=== PATIENT | female | born 2000 | race Caucasian/White ===

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

== ENCOUNTER 2019-06-17 07:31 | Emergency (ER) | payer SELFPAY ==
[~2019-06-17] VITALS: Ht 160 cm; Wt 77.3 kg
[~2019-06-17 07:31] MED LIST: ACET500T15 PO; DOXY100C37 PO; IBUP-1022 PO; NAPR-837 PO; REGL10TA6 PO
[2019-06-17] MEDS ORDERED: ACET-683 PO (09:25)
[2019-06-17 09:38] VITALS: BP 129/63
--- NOTE | 2019-06-17 09:55 | REP ---
RIGHT HAND, FOUR VIEWS: There is no evidence of an acute fracture, dislocation or intrinsic bone disease. IMPRESSION: No fracture or dislocation. Electronically Signed by Sam Mohan MD 06/18/2019 09:16 P
== END 2019-06-17 09:39 | disposition home or self-care (01) ==
LOC: M ED 09:31
DX: S62.514A Nondisplaced fracture of proximal phalanx of right thumb, initial encounter for closed fracture (principal); W10.9XXA Fall (on) (from) unspecified stairs and steps, initial encounter; Y92.099 Unspecified place in other non-institutional residence as the place of occurrence of the external cause; Y93.01 Activity, walking, marching and hiking; Y99.9 Unspecified external cause status; R51 Headache; Z72.0 Tobacco use

== ENCOUNTER 2019-07-17 07:33 | Emergency (ER) | payer SELFPAY ==
[~2019-07-17] VITALS: Ht 160 cm; Wt 76.5 kg
[~2019-07-17 07:33] MED LIST changes: +ACET-683 PO
[2019-07-17] MEDS ORDERED: IBUP-1022 PO (07:39)
[2019-07-17] MEDS ORDERED: NS 1,000 ML IV SCH (09:23)
[2019-07-17] MEDS ORDERED: ONDANSETRON 4MG/2ML VIAL (J2405) IV ONE (09:30)
[2019-07-17 09:39] LABS: URINE PREG TEST NEGATIVE (NEGATIVE)
[2019-07-17 10:02] LABS: BASO % 0.3 % (0.0-1.0); EOS % 0.3 % (0.0-3.0); HEMATOCRIT 40.8 % (36.0-47.0); HEMOGLOBIN 13.3 g/dl (12.0-15.5); LYMPH # 2.8 10^3/uL (1.5-6.5); LYMPH % 21.2 % (24.0-44.0); MEAN CORPUSCULAR HEMOGLOBIN 29.3 pg (27.0-33.0); MEAN CORPUSCULAR HGB CONC 32.6 g/dl (32.0-36.5); MEAN CORPUSCULAR VOLUME 89.9 fl (80.0-96.0); MONO # 0.8 10^3/uL (0.0-0.8); MONO % 5.8 % (0.0-5.0); NEUTROPHILS # 9.4 10^3/uL (1.8-7.7); NEUTROPHILS % 72.1 % (36.0-66.0); PLATELET COUNT, AUTOMATED 305 10^3/uL (150-450); RED BLOOD COUNT 4.54 10^6/uL (4.00-5.40)
[2019-07-17] MEDS: GASTROGRAFIN SOLUTION 30ML PO SCH ×2 (10:20→11:01)
[2019-07-17 10:41] LABS: ALBUMIN 4.6 GM/DL (3.2-5.2); ALT/SGPT 20 U/L (12-78); BILIRUBIN,DIRECT 0.1 MG/DL (0.0-0.2); BILIRUBIN,TOTAL 0.2 MG/DL (0.2-1.0); BLOOD UREA NITROGEN 8 MG/DL (7-18); CARBON DIOXIDE LEVEL 30 MEQ/L (21-32); CHLORIDE LEVEL 106 MEQ/L (98-107); CREATININE FOR GFR 0.93 MG/DL (0.55-1.30); GLUCOSE, FASTING 91 MG/DL (70-100); LIPASE 48 U/L (73-393); POTASSIUM SERUM 4.2 MEQ/L (3.5-5.1); SODIUM LEVEL 141 MEQ/L (136-145)
[2019-07-17] MEDS ORDERED: ISOVUE-370 76% 100ML VIAL (Q9967) As Ordered ONE (11:25)
--- NOTE | 2019-07-17 12:29 | REP ---
CT of the abdomen and pelvis with IV and bowel contrast: There are no comparisons. The visualized lung alberto are unremarkable. The hepatic parenchyma is homogeneous. The gallbladder is unremarkable. The pancreas is unremarkable. The spleen is unremarkable. The adrenals are unremarkable. The kidneys are unremarkable. The abdominal aorta is unremarkable. There is no retroperitoneal adenopathy or mass. There is no mesenteric adenopathy or ascites. The mesentery is unremarkable. There is no bowel distension or obstruction. There is no small bowel wall thickening. There is no large bowel wall thickening. Pelvis: The appendix is unremarkable. The terminal ileum is unremarkable. The pelvic bowel loops are unremarkable. The uterus and adnexa are unremarkable. There are small follicles in each ovary. There is no ascites or adenopathy. The bladder is unremarkable. Impression: Essentially negative CT study of the abdomen and pelvis. Electronically Signed by Sam Lowe MD 07/17/2019 12:21 P
[2019-07-17 13:26] VITALS: BP 140/65
[2019-07-17] MEDS ORDERED: NITROFURANTOIN (MACROBID) 100 MG CAP PO ONE (13:30)
[2019-07-17] MEDS ORDERED: MACR100C43 PO (13:42)
== END 2019-07-17 13:59 | disposition home or self-care (01) ==
LOC: M ED 07:33
DX: N39.0 Urinary tract infection, site not specified (principal); R19.7 Diarrhea, unspecified; F17.200 Nicotine dependence, unspecified, uncomplicated
CPT/HCPCS: 74177; 80048; 80076; 81001; 83690; 84703; 85025; 87088; 87186; 87507; 96374; 99284; J2405; Q9963; Q9967

== ENCOUNTER 2021-02-07 16:26 | Inpatient (IN) | payer MEDICAID, OTHER, SELFPAY ==
[~2021-02-07] VITALS: Ht 162.6 cm; Wt 77.4 kg
[~2021-02-07 16:26] MED LIST changes: +MACR100C43 PO
[2021-02-07] MEDS ORDERED: diphenhydrAMINE 50MG/ML VIAL (J1200) IV STA (17:11)
[2021-02-07] MEDS ORDERED: METOCLOPRAMIDE INJ 10MG/2ML VIAL (J2765 PER 1) IV ONE (17:15)
[2021-02-07] MEDS ORDERED: KETOROLAC 30 MG/ML 1ML VIAL IV ONE (17:15)
[2021-02-07 17:48] LABS: HEMATOCRIT 41.6 % (36.0-47.0); MEAN CORPUSCULAR HEMOGLOBIN 30.8 pg (27.0-33.0); MEAN CORPUSCULAR HGB CONC 33.7 g/dl (32.0-36.5); MEAN CORPUSCULAR VOLUME 91.4 fl (80.0-96.0); PLATELET COUNT, AUTOMATED 297 10^3/uL (150-450); RED BLOOD COUNT 4.55 10^6/uL (4.00-5.40); WHITE BLOOD COUNT 19.9 10^3/uL (4.0-10.0)
[2021-02-07 18:03] LABS: BLOOD UREA NITROGEN 16 MG/DL (7-18); CALCIUM LEVEL 9.6 MG/DL (8.5-10.1); CARBON DIOXIDE LEVEL 27 MEQ/L (21-32); CHLORIDE LEVEL 101 MEQ/L (98-107); GLOMERULAR FILTRATION RATE > 60.0 (>60); GLUCOSE, FASTING 119 MG/DL (70-100); POTASSIUM SERUM 3.4 MEQ/L (3.5-5.1); SODIUM LEVEL 136 MEQ/L (136-145)
[2021-02-07 18:07] LABS: HCG, SERUM QUALITATIVE NEGATIVE (NEGATIVE)
[2021-02-07] MEDS ORDERED: FUROSEMIDE 40MG/4ML VIAL (J1940) IV ONE (18:15)
[2021-02-07] MEDS ORDERED: LORazepam 2 MG/ML VIAL IV STA (18:48)
[2021-02-07] MEDS ORDERED: MAG SULF 1GM/100ML (MAG RUN) 1 GM in IV 1 EA IV ONE (18:50)
[2021-02-07] MEDS ORDERED: NS 1,000 ML IV ONE (18:50)
[2021-02-07] MEDS ORDERED: PROMETHAZINE INJ 25 MG/ML VIAL (J2550) IV ONE (18:50)
--- NOTE | 2021-02-07 19:20 | REPVR ---
PROCEDURE INFORMATION: Exam: CT Head Without Contrast Exam date and time: 02/07/2021 5:17 PM Age: 20 years old Clinical indication: Pain; Headache TECHNIQUE: Imaging protocol: Computed tomography of the head without contrast. Radiation optimization: All CT scans at this facility use at least one of these dose optimization techniques: automated exposure control; mA and/or kV adjustment per patient size (includes targeted exams where dose is matched to clinical indication); or iterative reconstruction. COMPARISON: No relevant prior studies available. FINDINGS: Brain: There is no evidence for an acute large vessel territorial infarct, intracranial hemorrhage, mass, mass effect, or herniation. The cortical gyration pattern, basal ganglia, thalami, brainstem, and cerebellum are normal in appearance. Cerebral ventricles: No ventriculomegaly. Bones/joints: Unremarkable. No acute fracture. Paranasal sinuses: Visualized sinuses are unremarkable. No fluid levels. Mastoid air cells: Visualized mastoid air cells are well-aerated. Soft tissues: Unremarkable. IMPRESSION: No acute intracranial abnormality. Electronically signed by: Oren Alicia On 02/07/2021 19:21:35 PM
[2021-02-07] MEDS ORDERED: HALOPERIDOL 5MG/ML VIAL (J1630 PER 1) IV ONE (20:20)
[2021-02-07] MEDS: DOCUSATE SODIUM 100MG CAPSULE PO SCH (21:00)
[2021-02-07] MEDS ORDERED: NIFEdipine 10 MG CAP PO ONE (21:45)
[2021-02-07 21:50] VITALS: BP 160/100
[2021-02-07] MEDS ORDERED: REGL10TA6 PO (21:51)
[2021-02-07] MEDS ORDERED: diazePAM 10MG/2ML SYRINGE (J3360 PER 5MG) IV ONE (22:15)
[2021-02-07 23:14] LABS: ETHYL ALCOHOL (ETHANOL) < 0.003 % (0.000-0.010)
[2021-02-07] MEDS ORDERED: MOM 30ML SUSPENSION UDC PO PRN (23:45)
[2021-02-07] MEDS ORDERED: ACETAMINOPHEN TAB 650MG DOSE (2X325MG) PO PRN (23:45)
[2021-02-07] MEDS ORDERED: MAALOX 30 ML SUSP *UDC PO PRN (23:45)
[2021-02-07 23:58] LABS: RSV AMPLIFICATION NEGATIVE (NEGATIVE)
--- NOTE | 2021-02-08 00:13 | REPVR ---
PROCEDURE INFORMATION: Exam: XR Chest Exam date and time: 02/07/2021 12:04 AM Age: 20 years old Clinical indication: Leukocytosis TECHNIQUE: Imaging protocol: XR of the chest Views: 1 view. COMPARISON: CR CHEST 2 VIEW 08/28/2014 7:08 PM FINDINGS: Lungs: Unremarkable. No consolidation. No pulmonary edema. Pleural spaces: Unremarkable. No pleural effusion. No pneumothorax. Heart/Mediastinum: Unremarkable. No cardiomegaly. Bones/joints: Unremarkable. IMPRESSION: No acute findings. Electronically signed by: Oren Alicia On 02/08/2021 00:13:06 AM
[2021-02-08 00:46] LABS: CPK CREATINE PHOSPHOKINASE 127 U/L (26-192)
[2021-02-08] MEDS ORDERED: POTASSIUM CHLORIDE 10 MEQ SR TABLET PO ONE (00:55)
--- NOTE | 2021-02-08 01:14 | HPEPDOC ---
[facility] Medical History & Physical Date of Admission Feb 08, 2021 Date of Service: Feb 08, 2021 History and Physical CHIEF COMPLAINT: Headache HISTORY OF PRESENT ILLNESS: 20-year-old female known history of migraine headaches who presents to the hospital with 10 out of 10 headache without aura associated with nausea and vomiting which she says frequently happens for her. Patient was treated in the emergency department for headache, nausea and vomiting and her symptoms did subside down to 6 out of 10 and her nausea and vomiting resolved. At the time patient was getting ready to be discharged home she had a witnessed seizure tonic-clonic which lasted about 2 minutes and was given IV Ativan. At the time that I saw the patient she did not appear to be postictal and she was able to answer my questions appropriately. Tells me she no longer feels nauseous and her headache is better. Tells me she's never had a seizure before. Arti MUSA discussed the case with neurologist director of infection control Dr. hartman, who suspects the seizu res likely secondary to all the medications she received for her headache and does not recommend an MRI brain at this time. He did recommended the patient be admitted for observation. PAST MEDICAL/SURGICAL HISTORY: Migraine headaches SOCIAL HISTORY: Endorses drinking alkyl socially a few times per week Denies tobacco use Denies illicit drug use with the exception of cannabis use FAMILY HISTORY: Reviewed and none contributory to this admission ALLERGIES: Please see below. REVIEW OF SYSTEMS: 10 point review of systems complete all negative otherwise stated in HPI HOME MEDICATIONS: Please see below. PHYSICAL EXAMINATION: Constitutional: Awake but keeps falling asleep. Answering my questions appropriately ENT: Sclera are clear Respiratory: Lungs CTA bilaterally. No respiratory distress. No use of accessory muscles. Cardiovascular: RRR S1 and S2 are normal, no murmur Gastrointestinal: Abdomen is soft, non distended, non tender, BS present. Musculoskeletal: No lower extremity edema. Neurologic: No focal neurological deficit. Negative Kernig and Brudzinski signs Mental Status: A&O x3, normal affect Skin: Warm, dry LABORATORY DATA: See below. IMAGING: See chart MICROBIOLOGY: Please see below. ASSESSMENT Migraine headaches without aura associated with nausea and vomiting. Witnessed seizure Leukocytosis Hypokalemia PLAN Patient's headache has improved to 6/10. Her nausea and vomiting also resolved at this time. We will give her Excedrin as needed and 1x 6 mg subQ sumatriptan. Neurologist believes that the witnessed seizure is likely related to all the headache medications the patient received and doesn't think an MRI is necessary at this time. Recommended patient be admitted to be observed. This is the patient's first seizure and should this recur further workup may be necessary. Patient's leukocytosis suspected to be reactive at this time. Follow up on chest x-ray urinalysis and blood culture. Follow-up pro calcitonin. No antibiotics for now. Hypokalemia likely secondary to vomiting. Replace potassium and repeat BMP in the morning. DVT prophylaxis with Lovenox A [facility] Hospitalist Vital Signs Vital Signs Date Time Temp Pulse Resp B/P (MAP) Pulse Ox O2 Delivery O2 Flow Rate FiO2 02/08/21 00:00 91 20 139/76 (97) 99 Room Air 02/07/21 16:38 96.2 Laboratory Data Labs 24H Laboratory Tests 2 02/07/21 17:32: Nucleated Red Blood Cells % (auto) 0.0, Anion Gap 8, Glomerular Filtration Rate > 60.0, Calcium Level 9.6, Human Chorionic Gonadotropin, Qual NEGATIVE 02/07/21 22:33: 02/07/21 22:34: Total Creatine Kinase 127, Ethyl Alcohol Level < 0.003 02/07/21 22:47: Coronavirus (COVID-19)(PCR) NEGATIVE, Influenza Type A (RT-PCR) NEGATIVE, Influenza Type B (RT-PCR) NEGATIVE, Respiratory Syncytial Virus (PCR) NEGATIVE CBC/BMP Laboratory Tests 02/07/21 17:32 Microbiology Microbiology 02/08/21 Blood Culture, Received Pending Home Medications Unable to Obtain Active Prescriptions or Reported Meds Allergies Coded Allergies: No Known Allergies (Unverified , 03/07/18) A-FIB/CHADSVASC A-FIB History Current/History of A-Fib/PAF?: No REN VAZQUEZ MD Feb 08, 2021 00:59
[2021-02-08 02:00] VITALS: BP 135/94
[2021-02-08] MEDS ORDERED: EXCEDRIN MIGRAINE TABLET PO PRN (02:00)
[2021-02-08] MEDS ORDERED: METOCLOPRAMIDE INJ 10MG/2ML VIAL (J2765 PER 1) IV PRN (02:00)
[2021-02-08] MEDS ORDERED: SUMAtriptan SUCCINATE 6 MG/0.5 ML VIAL SC ONE (02:00)
[2021-02-08 06:00] VITALS: BP 147/81
[2021-02-08 06:44] LABS: HEMATOCRIT 37.5 % (36.0-47.0); HEMOGLOBIN 12.6 g/dl (12.0-15.5); MEAN CORPUSCULAR HEMOGLOBIN 30.5 pg (27.0-33.0); MEAN CORPUSCULAR HGB CONC 33.6 g/dl (32.0-36.5); MEAN CORPUSCULAR VOLUME 90.8 fl (80.0-96.0); PLATELET COUNT, AUTOMATED 270 10^3/uL (150-450); RED BLOOD COUNT 4.13 10^6/uL (4.00-5.40); WHITE BLOOD COUNT 19.7 10^3/uL (4.0-10.0)
[2021-02-08 07:04] LABS: ALBUMIN 3.8 GM/DL (3.2-5.2); ALT/SGPT 22 U/L (12-78); BILIRUBIN,TOTAL 0.9 MG/DL (0.2-1.0); BLOOD UREA NITROGEN 11 MG/DL (7-18); CALCIUM LEVEL 8.4 MG/DL (8.5-10.1); CARBON DIOXIDE LEVEL 26 MEQ/L (21-32); CHLORIDE LEVEL 108 MEQ/L (98-107); CREATININE FOR GFR 0.84 MG/DL (0.55-1.30); GLOMERULAR FILTRATION RATE > 60.0 (>60); GLUCOSE, FASTING 94 MG/DL (70-100); MAGNESIUM LEVEL 2.4 MG/DL (1.8-2.4); SODIUM LEVEL 138 MEQ/L (136-145); TOTAL PROTEIN 6.5 GM/DL (6.4-8.2)
[2021-02-08] MEDS: DOCUSATE SODIUM 100MG CAPSULE PO SCH (08:18)
[2021-02-08] MEDS ORDERED: ENOXAPARIN 40MG/0.4ML SYRINGE (J1650 PER 10MG) SC SCH (09:00)
[2021-02-08 09:03] LABS: APPEARANCE, URINE HAZY (CLEAR); BACTERIA, URINE AUTO NEGATIVE (NEGATIVE); BILIRUBIN, URINE AUTO NEGATIVE (NEGATIVE); BLOOD, URINE BLOOD NEGATIVE (NEGATIVE); COLOR, URINE YELLOW (YELLOW); GLUCOSE, URINE (UA) AUTO NEGATIVE (NEGATIVE); KETONE, URINE AUTO 1+ mg/dL (NEGATIVE); LEUKOCYTE ESTERASE, URINE AUTO NEGATIVE (NEGATIVE); MUCUS, URINE SMALL (NEGATIVE); NITRITE, URINE AUTO NEGATIVE (NEGATIVE); PROTEIN, URINE AUTO 1+ mg/dL (NEGATIVE); RBC, URINE AUTO 2 /HPF (0-3); SPECIFIC GRAVITY URINE AUTO 1.019 (1.002-1.035); SQUAMOUS EPITHELIAL CELL UR AU 5 /HPF (0-6); UROBILINOGEN, URINE AUTO 0.2 mg/dL (0.0-2.0); WBC, URINE AUTO 1 /HPF (0-3)
[2021-02-08 09:26] LABS: AMPHETAMINES LEVEL URINE NEGATIVE (NEGATIVE); BARBITURATES URINE NEGATIVE (NEGATIVE); BENZODIAZEPINES URINE NEGATIVE (NEGATIVE); CANNABINOIDS URINE POSITIVE (NEGATIVE); COCAINE METABOLITE URINE NEGATIVE (NEGATIVE); METHADONE URINE NEGATIVE (NEGATIVE); OPIATES URINE NEGATIVE (NEGATIVE); PHENCYCLIDINE URINE NEGATIVE (NEGATIVE)
[2021-02-08] MEDS ORDERED: TOPA1TAB PO (10:11)
[2021-02-08] MEDS ORDERED: FIOR1CAP PO (10:11)
--- NOTE | 2021-02-08 11:09 | DS.PDOC ---
Discharge Summary General Date of Admission Feb 07, 2021 at 23:44 Date of Discharge 02/08/21 Discharge Summary PROCEDURES PERFORMED DURING STAY: [None]. DISCHARGE DIAGNOSES: Acute Migraine headaches Witnessed seizure thought to be due to multiple medications given for migraine Reactive Leukocytosis Hypokalemia Cannabis use. COMPLICATIONS/CHIEF COMPLAINT: Seizure. HOSPITAL COURSE: 20-year-old female known history of migraine headaches who presented to the hospital with 10 out of 10 headache without aura associated with nausea and vomiting which she says frequently happens for her. Patient was treated in the emergency department for headache, nausea and vomiting and her symptoms did subside down to 6 out of 10 and her nausea and vomiting resolved. At the time patient was getting ready to be discharged home she had a witnessed seizure tonic-clonic which lasted about 2 minutes and was given IV Ativan. ED provider Arti MUSA discussed the case with neurologist front line leader Dr. Plaza, who suspects the seizure was likely secondary to all the medications she received for her headache and did not recommend an MRI brain at this time. He did recommended the patient be admitted for observation. This was her first episode of Seizure and Neurology did not recommend starting any anti seizure medications. She did not have any further seizures overnight. He headache has mostly resolved now. She was started on topamax for migraine prophylaxis and was given a script for Fioricet for acute migraine attacks. Her labs were significant for leucocytosis . Her procalcitonin was not elevated. Her Utox was positive for Cannabis. PHYSICAL EXAMINATION ON DISCHARGE: VITAL SIGNS: Please see below. GENERAL: Awake alert oriented x 3 ENT: Sclera are clear Respiratory: clear to Auscultation , Normal air entry. Cardiovascular: RRR S1 and S2 are normal, no murmur Gastrointestinal: Abdomen is soft, non distended, non tender, BS present. Musculoskeletal: No lower extremity edema. Neurologic: No focal neurological deficit. Negative Kernig and Brudzinski signs Mental Status: A&O x3, normal affect Skin: Warm, dry LABORATORY DATA: Please see below. IMAGING: CT head: Brain: There is no evidence for an acute large vessel territorial infarct, intracranial hemorrhage, mass, mass effect, or herniation. The cortical gyration pattern, basal ganglia, thalami, brainstem, and cerebellum are normal in appearance. Cerebral ventricles: No ventriculomegaly. Bones/joints: Unremarkable. No acute fracture. Paranasal sinuses: Visualized sinuses are unremarkable. No fluid levels. Mastoid air cells: Visualized mastoid air cells are well-aerated. Soft tissues: Unremarkable. IMPRESSION: No acute intracranial abnormality ACTIVITY: [As tolerated]. DIET: Regular DISCHARGE PLAN: Home DISPOSITION: . DISCHARGE INSTRUCTIONS: Pmd in 1 month DISCHARGE CONDITION: [Stable]. TIME SPENT ON DISCHARGE: 35 minutes. Vital Signs/I&Os Vital Signs Date Time Temp Pulse Resp B/P (MAP) Pulse Ox O2 Delivery O2 Flow Rate FiO2 02/08/21 06:00 98.1 71 16 147/81 (103) 100 Room Air I&O- Last 24 Hours up to 6 AM 02/08/21 06:00 Intake Total 360 ml Output Total 0 ml Balance 360 ml Laboratory Data Labs 24H Laboratory Tests 2 02/07/21 17:32: Nucleated Red Blood Cells % (auto) 0.0, Anion Gap 8, Glomerular Filtration Rate > 60.0, Calcium Level 9.6, Human Chorionic Gonadotropin, Qual NEGATIVE 02/07/21 22:33: Procalcitonin <0.05 02/07/21 22:34: Total Creatine Kinase 127, Ethyl Alcohol Level < 0.003 02/07/21 22:47: Coronavirus (COVID-19)(PCR) NEGATIVE, Influenza Type A (RT-PCR) NEGATIVE, Influenza Type B (RT-PCR) NEGATIVE, Respiratory Syncytial Virus (PCR) NEGATIVE 02/08/21 06:23: Nucleated Red Blood Cells % (auto) 0.0, Anion Gap 4L, Glomerular Filtration Rate > 60.0, Calcium Level 8.4L, Magnesium Level 2.4, Total Bilirubin 0.9, Aspartate Amino Transf (AST/SGOT) 11, Alanine Aminotransferase (ALT/SGPT) 22, Alkaline Phosphatase 63, Total Protein 6.5, Albumin 3.8, Albumin/Globulin Ratio 1.4 02/08/21 08:50: Urine Color YELLOW, Urine Appearance HAZY, Urine pH 6.0, Urine Specific [place] 1.019, Urine Protein 1+H, Urine Glucose (Auto)(UA) NEGATIVE, Urine Ketones (Auto) 1+H, Urine Blood NEGATIVE, Urine Nitrite NEGATIVE, Urine Bilirubin NEGATIVE, Urine Urobilinogen 0.2, Urine Leukocyte Esterase (Auto) NEGATIVE, Urine WBC (Auto) 1, Urine RBC (Auto) 2, Urine Hyaline Casts (Auto) 0, Urine Bacteria (Auto) NEGATIVE, Urine Squamous Epithelial Cells 5, Urine Mucus (Auto) SMALL, Urine Sperm (Auto) , Urine Opiates Screen NEGATIVE, Urine Methadone Screen NEGATIVE, Urine Barbiturates Screen NEGATIVE, Urine Phencyclidine Screen NEGATIVE, Urine Amphetamines Screen NEGATIVE, Urine Benzodiazepines Screen NEGATIVE, Urine Cocaine Metabolite Screen NEGATIVE, Urine Cannabinoids Screen POSITIVEH CBC/BMP Laboratory Tests 02/07/21 17:32 02/08/21 06:23 Microbiology Microbiology 02/08/21 Blood Culture, Received Pending 02/08/21 Blood Culture, Received Pending Discharge Medications Scheduled Topiramate (Topamax) 25 Mg Tablet, 25 MG PO ASDIRECTED 1 tab at bedtime for 7 days then 2 tabs at bedtime to continue. Scheduled PRN Butalb/Acetaminophen/Caffeine (Fioricet 50-300-40 mg Capsule) 1 Each Capsule, 1- 2 CAP PO Q4HP PRN for HEADACHE Allergies Coded Allergies: No Known Allergies (Unverified , 03/07/18) BONIFACIO ROMEO MD Feb 08, 2021 11:09
--- NOTE | 2021-02-10 22:09 | ECGEPIP ---
[facility] - ED Test Date: 2021-02-07 Pat Name: VINCENT MAIN Department: Room: [place] [address] Gender: Female Research Editor: zander : 2000 Requested By: MARITA MEDRANO Order Number: [id number] Reading MD: Sonu Raza Measurements Intervals Glynn Rate: 58 P: 24 VA: 130 QRS: 81 QRSD: 82 T: 67 QT: 444 QTc: 435 Interpretive Statements Sinus bradycardia Comparison tracing not on file Electronically Signed on 02-10-2021 22:09:21 EDT by Sonu aRza
== END 2021-02-08 11:40 | disposition home or self-care (01) | DRG 54 ==
LOC: M ED 16:26 → M ED INP 23:44 → ENRESERV 02-08 00:43 → M MS5PR 02-08 02:00
PROVIDERS: ADMIT Family Medicine; ATTEND Internal Medicine Nephrology
DX: G43.909 Migraine, unspecified, not intractable, without status migrainosus (principal); G40.409 Other generalized epilepsy and epileptic syndromes, not intractable, without status epilepticus; E87.6 Hypokalemia; F12.90 Cannabis use, unspecified, uncomplicated; D72.829 Elevated white blood cell count, unspecified

== ENCOUNTER 2021-02-11 10:01 | Observation (INO) | payer OTHER ==
[~2021-02-11] VITALS: Ht 157.5 cm; Wt 73.6 kg
[~2021-02-11 10:01] MED LIST changes: +FIOR1CAP PO; +TOPA1TAB PO
[2021-02-11] MEDS ORDERED: MAGN400T2 PO ×2 (10:12→12:00)
[2021-02-11 10:33] LABS: BASO # 0.1 10^3/uL (0.0-0.2); BASO % 0.2 % (0.0-1.0); HEMATOCRIT 41.5 % (36.0-47.0); HEMOGLOBIN 14.2 g/dl (12.0-15.5); LYMPH # 1.5 10^3/uL (1.5-5.0); LYMPH % 5.7 % (24.0-44.0); MEAN CORPUSCULAR HGB CONC 34.2 g/dl (32.0-36.5); MEAN CORPUSCULAR VOLUME 90.6 fl (80.0-96.0); MONO # 0.9 10^3/uL (0.0-0.8); MONO % 3.7 % (2.0-8.0); NEUTROPHILS # 23.1 10^3/uL (1.5-8.5); NEUTROPHILS % 89.6 % (36.0-66.0); PLATELET COUNT, AUTOMATED 319 10^3/uL (150-450); RED BLOOD COUNT 4.58 10^6/uL (4.00-5.40); WHITE BLOOD COUNT 25.7 10^3/uL (4.0-10.0)
[2021-02-11 10:53] LABS: ERYTHROCYTE SEDIMENTATION RATE 3 mm/hr (0-20)
[2021-02-11] MEDS ORDERED: NS 1,000 ML IV ONE (10:55)
[2021-02-11] MEDS ORDERED: ACETAMINOPHEN 500 MG TAB PO ONE ×2 (10:55→13:50)
[2021-02-11] MEDS ORDERED: METOCLOPRAMIDE INJ 10MG/2ML VIAL (J2765 PER 1) IV ONE ×3 (10:55→16:00)
[2021-02-11] MEDS ORDERED: diphenhydrAMINE 50MG/ML VIAL (J1200) IV ONE (10:55)
[2021-02-11] MEDS ORDERED: KETOROLAC 30 MG/ML 1ML VIAL IV ONE ×2 (10:55→17:00)
[2021-02-11 11:06] LABS: ALBUMIN 4.8 GM/DL (3.2-5.2); ALT/SGPT 23 U/L (12-78); BILIRUBIN,DIRECT < 0.1 MG/DL (0.0-0.2); BILIRUBIN,TOTAL 0.3 MG/DL (0.2-1.0); C REACTIVE PROTEIN QUANTITATIV < 0.30 MG/DL (0.00-0.30); TOTAL PROTEIN 7.9 GM/DL (6.4-8.2)
[2021-02-11] MEDS ORDERED: TOPIRAMATE (TopAMAX) 25 MG TAB PO ONE (11:10)
--- NOTE | 2021-02-11 11:34 | REP ---
INDICATION: photophobia, int severe pain fronta sin Wednesday, leukocytosis. COMPARISON: Three 11/17/2021 and 09/21/2008. TECHNIQUE: CT of the brain without IV contrast. FINDINGS: There is no acute hemorrhage. There is no edema, mass effect or midline shift. The ventricles are normal size. The cortical stripe is maintained. The visualized paranasal sinuses and mastoid air cells are clear. The sphenoid sinus cyst identified on 09 0909/21/2008 has resolved. IMPRESSION: No acute hemorrhage, edema, mass effect or midline shift. Otherwise, negative CT study of the brain. Given the persistence of the symptomatology MRI might be considered for follow-up. <Electronically signed by Sam Lowe > 02/11/21 1170
[2021-02-11 11:40] LABS: MONO REFLEX EBV COMP NEGATIVE (NEGATIVE)
[2021-02-11] MEDS ORDERED: VALPROATE SOD INJ 1,000 MG in D5W 50 ML IV ONE (12:00)
[2021-02-11] MEDS ORDERED: TOPI25TA10 PO (12:00)
[2021-02-11] MEDS ORDERED: BUTA1CAP PO (12:00)
[2021-02-11 13:02] LABS: RSV AMPLIFICATION NEGATIVE (NEGATIVE)
[2021-02-11 14:06] LABS: AMPHETAMINES LEVEL URINE NEGATIVE (NEGATIVE); BARBITURATES URINE POSITIVE (NEGATIVE); BENZODIAZEPINES URINE NEGATIVE (NEGATIVE); CANNABINOIDS URINE POSITIVE (NEGATIVE); COCAINE METABOLITE URINE NEGATIVE (NEGATIVE); METHADONE URINE NEGATIVE (NEGATIVE); OPIATES URINE NEGATIVE (NEGATIVE); PHENCYCLIDINE URINE NEGATIVE (NEGATIVE)
[2021-02-11 14:06] LABS: APPEARANCE, CSF CLEAR (CLEAR); COLOR, CSF COLORLESS (COLORLESS); CSF TUBE# CELL CNT TUBE 1
[2021-02-11 14:14] LABS: CSF TUBE# GLU TUBE 3; CSF TUBE# TP TUBE 3; GLUCOSE CSF 75 MG/DL (40-75); TOTAL PROTEIN,CSF 60 MG/DL (15-45)
[2021-02-11] MEDS: MAG SULF 1GM/100ML (MAG RUN) 1 GM in IV 1 EA IV SCH ×2 (14:57→18:46)
[2021-02-11 15:25] VITALS: BP 139/79
[2021-02-11 15:30] VITALS: BP 190/90
--- NOTE | 2021-02-11 15:38 | HPEPDOC ---
General Date of Admission Feb 11, 2021 Date of Service: Feb 11, 2021 Attending Physician: FÉLIX FRENCH MD Chief Complaint The patient is a 20-year-old female admitted with a reason for visit of John valdovinos. Source: Patient Exam Limitations: No limitations Associated Symptoms: Headaches, Nausea, Vomiting History of Present Illness Subjective: Patient is a 20 year old female with PHM of migraine headaches and undiagnosed hypertension who presented to the ED due to worsening frontal headache onset (02/06/21). Her headache was initially intermittent but became constant at 5:30 am today. Pt describes the headache as "pounding and squeezing" frontal headache that does not radiate. Nothing makes her headache better or worse. She reports being dx with migraines at the age of 6 initially. Admits to lightheadedness, dizziness, blurry vision, nausea, vomiting x4 today, photophobia, SOB, neck pain, neck stiffness, diarrhea and constipation. She states that she does not "feel balanced" when she is walking. Denies fever, chills, rashes, lesions, abd pain, back pain. Denies any recent sick contacts or travel. She first presented to the ED on 02/07/21, due to headache and was given Benadryl, Toradol, and Reglan that minimally helped with her sx. As she was being discharged from the ED pt had a witnessed seizure that lasted about 2 minutes and was given IV Ativan. She reports that she does not remember the seizure and feeling confused after. She was admitted for observation at that time and was discharged with Topamax 25 mg. Past medical history: Migraine headaches since age 6. HTN (not formally diagnosed per pt). Social history: Admits to occasional EtOH use. Admits to marijuana use (smoked "for a couple years, here and there"; last smoked 1 wk ago). Admits past tobacco use. She states that she is sexually active with one partner, only occasionally using protection. Family History: Father has hx of liver CA and HTN. Mother has hx of HTN. Objective: VITALS: See below. GENERAL: Pt is laying down in bed in a dark room. Appears to be in slight distress secondary to pain. HEENT: EOMI. PERRLA. Conjunctiva and lids normal. No papilledema. Frontal sinus very tender to palpation. Mild maxillary sinus tenderness. No increase in lacrimation noted. No rhinorrhea. NECK: No nuchal rigidity. Negative Brudzinski's sign. Negative Kernig's sign. HEART: Regular rate and rhythm. Normal S1/S2. No murmurs, rubs, or gallops appreciated. LUNGS: Lungs clear to auscultation. Good air movement. No wheezes, rales, or rhonchi. ABD: Soft and non-tender to palpation. No rebound or guarding. Normal bowel sounds to all four quadrants. EXTREMITIES: No edema noted. NEURO: No focal neurological deficits appreciated. Strength intact. Imaging: Head CT (02/11/21): IMPRESSION - No acute hemorrhage, edema, mass effect or midline shift. Otherwise, negative CT study of the brain. Given the persistence of the symptomatology MRI might be considered for follow-up. Assessment/Plan: Patient is a 20 year old female with PHM of migraine headaches and undiagnosed hypertension who presented to the ED due to worsening frontal headache onset (02/06/21). Her headache was initially intermittent but became constant at 5:30 am today. Pt describes the headache as "pounding and squeezing" frontal headache that does not radiate. Nothing makes her headache better or worse. She reports being dx with migraines at the age of 6 initially. Admits to lightheadedness, dizziness, blurry vision, nausea, vomiting x4 today, photophobia, SOB, neck pain, neck stiffness, diarrhea and constipation. She states that she does not "feel balanced" when she is walking. Denies fever, chills, rashes, lesions, abd pain, back pain. Denies any recent sick contacts or travel. She first presented to the ED on 02/07/21, due to headache and was given Benadryl, Toradol, and Reglan that minimally helped with her sx. As she was being discharged from the ED pt had a witnessed seizure that lasted about 2 minutes and was given IV Ativan. She reports that she does not remember the seizure and feeling confused after. She was admitted for observation at that time and was discharged with Topamax 25 mg. In the ED today, pt had elevated WBC at 25.7 as well as neck pain and stiffness that was reported by pt. Will admit for observation for further workup of headache. #Intractable headache - Differential diagnosis at this time is migraine headache vs viral meningitis vs pseudo tumor cerebri. - CT Head on 02/11/21 showed no acute hemorrhage, edema, mass effect or midline shift. Otherwise, negative CT study of the brain. Given the persistence of the symptomatology MRI might be considered for follow-up. - MRI and MRA brain ordered. - Pt WBC was elevated at 25.7 in ED. - LP completed. Pt instructed to lay flat for 2 hours and elevate head of bed no higher than 30 degrees. Vitals q1h for 2 hrs. Then will resume standard vitals. - CSF analysis showed <2 RBC as well as 60 protein. - CSF culture and blood culture pending. - Viral meningitis work up pending. - Lactic acid WNL. - Pt given 1 g Valproate, topiramate, reglan in ED. - Gave 1 dose of Toradol and morphine. - Neuro consulted. Instructs to give pt Mag sulfate 1 gm now and 1 gm in 6 hr. Instructs to continue with MRI/MRA brain and work up for viral meningitis. #History of possible seizure - Pt has had one episode of a reported seizure last Wednesday. Unsure if this was witnessed or not as documentation is unclear. At time it was believed to be possibly provoked by medication (Phenergan, Toradol, and Benadryl) - Unclear of specific details of the seizure so difficult to say if pt actually had a seizure. - Pt given 1g Valproate in ED to prevent seizure. - Prolactin ordered- pending - Pt has appointment to follow up with neurology. #Leukocytosis - Will continue to trend - UA negative, CXR wnl, afebrile- no abx indicated at this point - Blood cultures pending - Not tachycardic or febrile. No indications for abx currently. Will continue to trend. #Hypertension - Pt BP is 190/90, may be secondary to pain. - Will give 1 dose IV hydralazine. Gave 1 dose of Toradol and morphine for pain control. - Will continue to monitor. DVT Prophylaxis: Lovenox 40 mg SC Daily. Disposition: Currently working up pt for migraine headache vs viral meningitis. Discharge pending clinical improvement. Home Medications Scheduled Magnesium Oxide (Magnesium Oxide) 400 Mg Tablet, 400 MG PO DAILY, (Reported) Topiramate (Topiramate) 25 Mg Tablet, 25 MG PO QHS, (Reported) Scheduled PRN Butalb/Acetaminophen/Caffeine (Wxrcyb-Ezxcmzem-Gsfs 50-300-40) 1 Each Capsule, 1 CAP PO Q4H PRN for HEADACHE, (Reported) Allergies Coded Allergies: No Known Allergies (Unverified , 03/07/18) A-FIB/CHADSVASC A-FIB History Current/History of A-Fib/PAF?: No Vital Signs Vital Signs Date Time Temp Pulse Resp B/P (MAP) Pulse Ox O2 Delivery O2 Flow Rate FiO2 02/11/21 13:35 98.0 82 18 192/92 (125) 100 Room Air Laboratory Data Labs 24H Laboratory Tests 2 02/11/21 10:22: Immature Granulocyte % (Auto) 0.8, Neutrophils (%) (Auto) 89.6H, Lymphocytes (%) (Auto) 5.7L, Monocytes (%) (Auto) 3.7, Eosinophils (%) (Auto) 0.0, Basophils (%) (Auto) 0.2, Neutrophils # (Auto) 23.1H, Lymphocytes # (Auto) 1.5, Monocytes # (Auto) 0.9H, Eosinophils # (Auto) 0.0, Basophils # (Auto) 0.1, Nucleated Red Blo od Cells % (auto) 0.0, Erythrocyte Sedimentation Rate 3, Total Bilirubin 0.3, Direct Bilirubin < 0.1, Aspartate Amino Transf (AST/SGOT) 14, Alanine Aminotransferase (ALT/SGPT) 23, Alkaline Phosphatase 67, C-Reactive Protein, Quantitative < 0.30, Total Protein 7.9, Albumin 4.8, Albumin/Globulin Ratio 1.5, Monoscreen NEGATIVE 02/11/21 10:29: POC Glucose (Misc Panel) 146H, POC Sodium (Misc Panel) 137, POC Potassium (Misc Panel) 3.8, POC Chloride (Misc Panel) 102, POC Total CO2 (Misc Panel) 23.0, POC Blood Urea Nitrogen (Misc Panel 16, POC Ionized Calcium (Misc Panel) 4.6, POC Creatinine (Misc Panel) 0.8, POC Hematocrit (Misc Panel) 44.0 02/11/21 10:31: POC Beta HCG, Quantitative < 5.0 02/11/21 11:06: 02/11/21 12:03: Coronavirus (COVID-19)(PCR) NEGATIVE, Influenza Type A (RT-PCR) NEGATIVE, Influenza Type B (RT-PCR) NEGATIVE, Respiratory Syncytial Virus (PCR) NEGATIVE 02/11/21 12:07: Lactic Acid Level 2.0 02/11/21 12:47: CSF Appearance CLEAR, CSF Color COLORLESS, CSF WBC (Auto) 1, CSF RBC (Auto) < 2H, CSF Glucose (Tube 1) TUBE 3, CSF Total Protein (Tube 1) TUBE 3, CSF Cell Count Tube # TUBE 1, CSF Polynuclear WBCs (%) , CSF Glucose 75, CSF Total Protein 60H 02/11/21 13:05: Urine Color YELLOW, Urine Appearance HAZY, Urine pH 8.0, Urine Specific [place] 1.011, Urine Protein NEGATIVE, Urine Glucose (UA) NEGATIVE, Urine Ketones TRACEH, Urine Blood NEGATIVE, Urine Nitrite NEGATIVE, Urine Bilirubin NEGATIVE, Urine Urobilinogen 0.2, Urine Leukocyte Esterase NEGATIVE, Urine WBC (Auto) 2, Urine RBC (Auto) 1, Urine Hyaline Casts (Auto) 0, Urine Bacteria (Auto) NEGA TIVE, Urine Squamous Epithelial Cells 3, Urine Mucus (Auto) SMALL, Urine Sperm (Auto) , Urine Opiates Screen NEGATIVE, Urine Methadone Screen NEGATIVE, Urine Barbiturates Screen POSITIVEH, Urine Phencyclidine Screen NEGATIVE, Urine Amphetamines Screen NEGATIVE, Urine Benzodiazepines Screen NEGATIVE, Urine Cocaine Metabolite Screen NEGATIVE, Urine Cannabinoids Screen POSITIVEH 02/11/21 13:49: CBC/BMP Laboratory Tests 02/11/21 10:22 Microbiology Microbiology 02/11/21 Fungal Smear, Received Pending 02/11/21 Fungal Culture, Received Pending 02/11/21 Viral Culture, Received Pending 02/11/21 Gram Stain, Received Pending 02/11/21 CSF Culture, Received Pending 02/11/21 , Received Pending 02/11/21 Blood Culture, Received Pending 02/11/21 Blood Culture, Received Pending Plan / VTE VTE Prophylaxis Ordered?: Yes GME ATTESTATION GME ATTESTATION My faculty preceptor for this patient encounter was physically present during the encounter and was fully available. All aspects of the patient interview, examination, medical decision making process, and medical care plan development were reviewed and approved by the faculty preceptor. The faculty preceptor is aware and concurs with the plan as stated in the body of this note and will attest to such by his/her cosignature. ATTENDING NOTE I, Félix French MD, have independently examined this patient and performed my own physical exam, as well as reviewed the documentation and edited where necessary. I have discussed in detail with the resident / student the findings and plan of treatment as documented by the resident / student and edited their note. I agree with their findings and treatment plan and have edited their documentation. Minerva MADRIGAL OMS-3 Feb 11, 2021 15:38 Kwame Driscoll DO Feb 11, 2021 16:00 FÉLIX FRENCH MD Feb 12, 2021 14:48
--- NOTE | 2021-02-11 15:51 | REP ---
INDICATION: photophobia, headache, leukocytosis. TECHNIQUE: The procedure was performed under the direct supervision of Dr. Hoff. The risks and benefits of the procedure were explained to the patient and informed consent was obtained. The L3-4 interspace was localized using fluoroscopic guidance. The skin was prepped and draped in a sterile fashion. 1% lidocaine was used as a local anesthetic. Using fluoroscopic guidance a 22-gauge spinal needle was inserted and advanced into the thecal sac. Opening pressure measured 19 cm of H2O. 12 ml of spinal fluid was withdrawn and sent to lab. The patient tolerated the procedure well and there were no immediate complications. Less than 6 seconds of fluoro time was utilized for this procedure. FINDINGS: Opening pressure measured 19 cm of H2O. IMPRESSION: Fluoro guidance for lumbar puncture. <Electronically signed by Arun Esparza > 02/11/21 [id number] <Electronically signed by Alfonso Hoff > 02/11/21 [id number]
[2021-02-11] MEDS ORDERED: MORPHINE 2 MG/ML 1ML VIAL (J2270) IV ONE (17:00)
[2021-02-11] MEDS ORDERED: hydrALAZINE 20MG/ML 1ML VIAL (J0360 PER 20MG) IV ONE (17:00)
--- NOTE | 2021-02-11 17:08 | ECGEPIP ---
[facility] Test Date: 2021-02-11 Pat Name: VINCENT MAIN Department: Room: [place] [address] Gender: Female Car Dumper: GIULIANO : 2000 Requested By: Kwame Driscoll Order Number: [id number] Reading MD: Sonu Wiggins Measurements Intervals [place] Rate: 68 P: 18 KS: 116 QRS: 71 QRSD: 82 T: 61 QT: 432 QTc: 459 Interpretive Statements Normal sinus rhythm with sinus arrhythmia Increased heart rate compared with 02/07/2021. Electronically Signed on 02-11-2021 17:07:44 EDT by Sonu Wiggins
[2021-02-11] MEDS ORDERED: SLF 3 ML SYR IV PRN (17:20)
[2021-02-11 17:30] VITALS: BP 139/79
[2021-02-11] MEDS: ACETAMINOPHEN TAB 650MG DOSE (2X325MG) PO PRN (19:49)
[2021-02-11] MEDS: SLF 3 ML SYR IV SCH ×2 (19:49→21:49)
[2021-02-11 20:00] VITALS: BP 141/87
[2021-02-11] MEDS: MORPHINE 2 MG/ML 1ML VIAL (J2270) IV PRN (21:00)
[2021-02-11] MEDS ORDERED: PROHANCE 279.3MG/ML 15ML VIAL As Ordered ONE (22:41)
[2021-02-12] VITALS: BP 154/80
--- NOTE | 2021-02-12 00:26 | REPVR ---
PROCEDURE INFORMATION: Exam: MR Head Without and With Contrast Exam date and time: 02/11/2021 10:53 PM Age: 20 years old Clinical indication: Pain; Other: Worst FISHMAN life, intermittent frontal, seizure Wednesday; Headache not specified TECHNIQUE: Imaging protocol: MR of the head without and with intravenous contrast. Contrast material: PROHANCE; Contrast volume: 15 ml; Contrast route: INTRAVENOUS (IV); COMPARISON: CT Head without contrast 02/11/2021 11:13 AM FINDINGS: Ventricles demonstrate normal size and configuration. Major vascular flow voids at the skull base are preserved. No extra-axial fluid collection. No midline shift or intracranial mass effect. No pathologic white-matter signal or cerebral edema. No diffusion restriction. No pathologic intracranial enhancement. Visualized paranasal sinuses are clear. There is effusion at the left petrous apex. IMPRESSION: No acute intracranial abnormality. Electronically signed by: Alireza Garcia On 02/12/2021 00:26:40 AM
--- NOTE | 2021-02-12 00:26 | REPVR ---
PROCEDURE INFORMATION: Exam: MR Angiogram Head Without Contrast, Arteries Exam date and time: 02/11/2021 10:53 PM Age: 20 years old Clinical indication: Pain; Headache; Additional info: Worst FISHMAN life, intermittent frontal, seizure Wednesday TECHNIQUE: Imaging protocol: MR angiogram head without contrast. Exam focused on the arteries. 3D rendering (Not supervised by radiologist): MIP and/or 3D reconstructed images were created by the technologist. COMPARISON: CT Head without contrast 02/11/2021 11:13 AM FINDINGS: ANTERIOR CIRCULATION: Right internal carotid artery: Intracranial segment is patent with no significant stenosis. No aneurysm. Right middle cerebral artery: No occlusion or significant stenosis. No aneurysm. Right anterior cerebral artery: No occlusion or significant stenosis. No aneurysm. Left internal carotid artery: Intracranial segment is patent with no significant stenosis. No aneurysm. Left middle cerebral artery: No occlusion or significant stenosis. No aneurysm. Left anterior cerebral artery: No occlusion or significant stenosis. No aneurysm. POSTERIOR CIRCULATION: Right vertebral artery: Right vertebral artery is dominant. Left vertebral artery: No occlusion or significant stenosis. No aneurysm. Basilar artery: No occlusion or significant stenosis. No aneurysm. Right posterior cerebral artery: No occlusion or significant stenosis. No aneurysm. Left posterior cerebral artery: No occlusion or significant stenosis. No aneurysm. IMPRESSION: Unremarkable MRA of the [id number]-Roxjmy. Electronically signed by: Alireza Garcia On 02/12/2021 00:26:25 AM
[2021-02-12] MEDS ORDERED: PERCOCET 5MG/325MG TAB PO ONE (00:30)
[2021-02-12] MEDS ORDERED: METOCLOPRAMIDE INJ 10MG/2ML VIAL (J2765 PER 1) IV ONE ×2 (00:55→08:30)
[2021-02-12] MEDS: MORPHINE 2 MG/ML 1ML VIAL (J2270) IV PRN (01:36)
[2021-02-12] MEDS ORDERED: MORPHINE 2 MG/ML 1ML VIAL (J2270) IV ONE (03:10)
[2021-02-12] MEDS: ONDANSETRON 4MG/2ML VIAL IV PRN ×3 (03:29→20:26)
[2021-02-12 04:00] VITALS: BP 124/69
[2021-02-12 07:48] LABS: BASO % 0.2 % (0.0-1.0); EOS % 0.1 % (0.0-3.0); HEMATOCRIT 39.1 % (36.0-47.0); HEMOGLOBIN 13.3 g/dl (12.0-15.5); LYMPH % 11.5 % (24.0-44.0); MEAN CORPUSCULAR HEMOGLOBIN 30.9 pg (27.0-33.0); MEAN CORPUSCULAR VOLUME 90.9 fl (80.0-96.0); MONO # 1.2 10^3/uL (0.0-0.8); MONO % 6.9 % (2.0-8.0); NEUTROPHILS # 14.4 10^3/uL (1.5-8.5); NEUTROPHILS % 80.8 % (36.0-66.0); PLATELET COUNT, AUTOMATED 272 10^3/uL (150-450); WHITE BLOOD COUNT 17.8 10^3/uL (4.0-10.0)
[2021-02-12 08:00] VITALS: BP 128/63
[2021-02-12 08:13] LABS: BLOOD UREA NITROGEN 11 MG/DL (7-18); CARBON DIOXIDE LEVEL 23 MEQ/L (21-32); CHLORIDE LEVEL 109 MEQ/L (98-107); CREATININE FOR GFR 0.95 MG/DL (0.55-1.30); GLOMERULAR FILTRATION RATE > 60.0 (>60); GLUCOSE, FASTING 105 MG/DL (70-100); POTASSIUM SERUM 3.9 MEQ/L (3.5-5.1); SODIUM LEVEL 139 MEQ/L (136-145)
[2021-02-12] MEDS ORDERED: KETOROLAC 30 MG/ML 1ML VIAL IV ONE (08:30)
[2021-02-12] MEDS: ENOXAPARIN 40MG/0.4ML SYRINGE (J1650 PER 10MG) SC SCH (09:31)
[2021-02-12 12:00] VITALS: BP 155/84
--- NOTE | 2021-02-12 12:32 | IPNPDOC ---
Subjective Date Seen The patient was seen on 02/12/21. Subjective Chief Complaint/HPI Subjective: Pt was seen at bedside this am. Pt states that she's had headaches overnight. Overnight team gave morphine and scheduled for q4h. She was also given percocet x 1. Imaging and LP results are all wnl. Pt will be advanced to a diet today. Objective: VITALS: See below. GENERAL: NAD, able to be in a room with lights on without much irritation HEENT: EOMI. PERRLA. Conjunctiva and lids normal. No papilledema. Frontal sinus very tender to palpation. Mild maxillary sinus tenderness. No increase in lacrimation noted. No rhinorrhea. NECK: No nuchal rigidity. Negative Brudzinski's, Kernig's sign. HEART: Regular rate and rhythm. Normal S1/S2. No murmurs, rubs, or gallops appreciated. LUNGS: Lungs clear to auscultation. Good air movement. No wheezes, rales, or rhonchi. ABD: Soft and non-tender to palpation. No rebound or guarding. Normal bowel sounds to all four quadrants. EXTREMITIES: No edema noted. NEURO: No focal neurological deficits appreciated. Strength intact. no vision changes. slight headache, no photophobia this morning Imaging: MRI and MRA- WNL. no occlusion within [place] on MRA. No intracranial abn on MRI Assessment/Plan: Patient is a 20 year old female with PHM of migraine headaches and undiagnosed hypertension who presented to the ED due to worsening frontal headache onset (02/06/21). Her headache was initially intermittent but became constant at 5:30 am today. Pt describes the headache as "pounding and squeezing" frontal headache that does not radiate. Nothing makes her headache better or worse. She reports being dx with migraines at the age of 6 initially. Admits to lightheadedness, dizziness, blurry vision, nausea, vomiting x4 today, photophobia, SOB, neck pain, neck stiffness, diarrhea and constipation. She states that she does not "feel balanced" when she is walking. Denies fever, chills, rashes, lesions, abd pain, back pain. Denies any recent sick contacts or travel. She first presented to the ED on 02/07/21, due to headache and was given Benadryl, Toradol, and Reglan that minimally helped with her sx. As she was being discharged from the ED pt had a witnessed seizure that lasted about 2 minutes and was given IV Ativan. She reports that she does not remember the seizure and feeling confused after. She was admitted for observation at that time and was discharged with Topamax 25 mg. Pt will admit for observation for further workup of intractable headache. #Intractable headache - Differential diagnosis at this time is migraine headache vs viral meningitis vs pseudo tumor cerebri. - Likely due to migraine headache- will continue her on topomax upon discharge and need f/u with neurology and PCP - CT Head, MRI and MRA brain WNL - LP CSF fluid analysis - normal opening pressure, slightly elevated protein, normal glucose, <2 RBCs - Viral and bacterial meningitis as cause of headaches and photophobia ruled out - Pt given 1 g Valproate, topiramate, reglan in ED. - Requiring morphine IV q4h and toradol and reglan for pain control. Will /DC IV morphine. - will start patient on 50mg topamax and will anticipate dc-ing her on this dose and f/u with neurology outpt - Headache pain control with topamax, tylenol. Will add on Motrin if needed. #History of possible seizure - No seizures overnight - prolactin- slight elevation - F.u with neurology outpt #Leukocytosis - trending down 26-->17 - LA WNL - Will continue to monitor - Fungal cx and blood cx still pending - UA negative, CXR wnl, afebrile- no abx indicated at this point #Hypertension - on admission SBP 230s; DBP 100s - With IV morphine, bp was able to be lowered - BP is 124/69- bp able to be decreased with pain control (IV morphine) - Workup to r/o secondary HTN - 24 h urine metaneprhine pending; aldosterone and renin levels ordered pending - Urine protein and cr ordered - will evaluate for proteinuria - Will monitor bp closely DVT ppx: Lovenox 40 mg SC Daily Diet: 2g Na Fluids: PO intake Code status: Full Disposition: Pending clinical improvement. likely d/c tomorrow Assessment /Plan Plan/VTE VTE Prophylaxis Ordered?: Yes VS, I&O, 24H, Fishbone Vital Signs/I&O Vital Signs Date Time Temp Pulse Resp B/P (MAP) Pulse Ox O2 Delivery O2 Flow Rate FiO2 02/12/21 08:00 97.8 63 18 128/63 (84) 98 Room Air I&O- Last 24 Hours up to 6 AM 02/12/21 06:00 Intake Total 1540 ml Output Total 1300 ml Balance 240 ml Laboratory Data 24H LABS Laboratory Tests 2 02/11/21 12:47: CSF Appearance CLEAR, CSF Color COLORLESS, CSF WBC (Auto) 1, CSF RBC (Auto) < 2H, CSF Glucose (Tube 1) TUBE 3, CSF Total Protein (Tube 1) TUBE 3, CSF Cell Count Tube # TUBE 1, CSF Polynuclear WBCs (%) , CSF Glucose 75, CSF Total Protein 60H 02/11/21 13:05: Urine Color YELLOW, Urine Appearance HAZY, Urine pH 8.0, Urine Specific [place] 1.011, Urine Protein NEGATIVE, Urine Glucose (UA) NEGATIVE, Urine Ketones TRACEH, Urine Blood NEGATIVE, Urine Nitrite NEGATIVE, Urine Bilirubin NEGATIVE, Urine Urobilinogen 0.2, Urine Leukocyte Esterase NEGATIVE, Urine WBC (Auto) 2, Urine RBC (Auto) 1, Urine Hyaline Casts (Auto) 0, Urine Bacteria (Auto) NEGATIVE, Urine Squamous Epithelial Cells 3, Urine Mucus (Auto) SMALL, Urine Sperm (Auto) , Urine Opiates Screen NEGATIVE, Urine Methadone Screen NEGATIVE, Urine Barbiturates Screen POSITIVEH, Urine Phencyclidine Screen NEGATIVE, Urine Amphetamines Screen NEGATIVE, Urine Benzodiazepines Screen NEGATIVE, Urine Cocaine Metabolite Screen NEGATIVE, Urine Cannabinoids Screen POSITIVEH 02/11/21 13:45: 02/11/21 13:49: Procalcitonin <0.05, Prolactin 65.7 02/12/21 07:31: Immature Granulocyte % (Auto) 0.5, Neutrophils (%) (Auto) 80.8H, Lymphocytes (%) (Auto) 11.5L, Monocytes (%) (Auto) 6.9, Eosinophils (%) (Auto) 0.1, Basophils (%) (Auto) 0.2, Neutrophils # (Auto) 14.4H, Lymphocytes # (Auto) 2.0, Monocytes # (Auto) 1.2H, Eosinophils # (Auto) 0.0, Basophils # (Auto) 0.0, Nucleated Red Blood Cells % (auto) 0.0, Anion Gap 7L, Glomerular Filtration Rate > 60.0, Calcium Level 9.0 02/12/21 10:53: CBC/BMP Laboratory Tests 02/12/21 07:31 Microbiology Microbiology 02/11/21 Fungal Smear, Received Pending 02/11/21 Fungal Culture, Received Pending 02/11/21 Viral Culture, Received Pending 02/11/21 Gram Stain - Final, Resulted 02/11/21 CSF Culture, Resulted Pending 02/11/21 - Final, Resulted 02/11/21 Blood Culture - Preliminary, Resulted No growth after 24 hours . All specim... 02/11/21 Blood Culture - Preliminary, Resulted No growth after 24 hours . All specim... GME ATTESTATION GME ATTESTATION My faculty preceptor for this patient encounter was physically present during the encounter and was fully available. All aspects of the patient interview, examination, medical decision making process, and medical care plan development were reviewed and approved by the faculty preceptor. The faculty preceptor is aware and concurs with the plan as stated in the body of this note and will attest to such by his/her cosignature. ATTENDING NOTE I, Félix French MD, have independently examined this patient and performed my own physical exam, as well as reviewed the documentation and edited where necessary. I have discussed in detail with the resident / student the findings and plan of treatment as documented by the resident / student and edited their note. I agree with their findings and treatment plan and have edited their documentation. Kwame Driscoll DO Feb 12, 2021 12:31 FÉLIX FRENCH MD Feb 12, 2021 14:52
[2021-02-12] MEDS: ACETAMINOPHEN TAB 650MG DOSE (2X325MG) PO PRN ×2 (14:20→20:26)
[2021-02-12 16:00] VITALS: BP 139/87
[2021-02-12] MEDS: SLF 3 ML SYR IV SCH ×2 (16:54→20:27)
[2021-02-12] MEDS: TOPIRAMATE (TopAMAX) 25 MG TAB PO SCH (16:55)
[2021-02-12 20:00] VITALS: BP 127/71
[2021-02-13] VITALS: BP 135/85
[2021-02-13] MEDS ORDERED: KETOROLAC 30 MG/ML 1ML VIAL IV ONE (01:15)
[2021-02-13] MEDS: ACETAMINOPHEN TAB 650MG DOSE (2X325MG) PO PRN (03:47)
[2021-02-13 04:00] VITALS: BP 120/65
[2021-02-13] MEDS: SLF 3 ML SYR IV SCH (05:00)
[2021-02-13 08:00] VITALS: BP 130/80
[2021-02-13 08:01] LABS: BASO % 0.4 % (0.0-1.0); EOS # 0.1 10^3/uL (0.0-0.5); EOS % 0.8 % (0.0-3.0); HEMOGLOBIN 13.5 g/dl (12.0-15.5); LYMPH # 2.6 10^3/uL (1.5-5.0); LYMPH % 25.3 % (24.0-44.0); MEAN CORPUSCULAR HEMOGLOBIN 30.8 pg (27.0-33.0); MEAN CORPUSCULAR HGB CONC 33.8 g/dl (32.0-36.5); MEAN CORPUSCULAR VOLUME 91.3 fl (80.0-96.0); MONO # 0.9 10^3/uL (0.0-0.8); MONO % 8.7 % (2.0-8.0); NEUTROPHILS # 6.7 10^3/uL (1.5-8.5); NEUTROPHILS % 64.4 % (36.0-66.0); PLATELET COUNT, AUTOMATED 257 10^3/uL (150-450); RED BLOOD COUNT 4.38 10^6/uL (4.00-5.40); WHITE BLOOD COUNT 10.4 10^3/uL (4.0-10.0)
[2021-02-13 08:25] LABS: BLOOD UREA NITROGEN 14 MG/DL (7-18); CALCIUM LEVEL 9.1 MG/DL (8.5-10.1); CARBON DIOXIDE LEVEL 24 MEQ/L (21-32); CHLORIDE LEVEL 108 MEQ/L (98-107); CREATININE FOR GFR 0.98 MG/DL (0.55-1.30); GLOMERULAR FILTRATION RATE > 60.0 (>60); GLUCOSE, FASTING 89 MG/DL (70-100); SODIUM LEVEL 139 MEQ/L (136-145)
--- NOTE | 2021-02-13 08:44 | DS.PDOC ---
Discharge Summary General Date of Admission Feb 11, 2021 at 10:02 Date of Discharge 02/13/21 Discharge Summary PROCEDURES PERFORMED DURING STAY: [None]. ADMITTING DIAGNOSES: intractable vomiting hx of migraines reported seizure leukocytosis HTN DISCHARGE DIAGNOSES: intractable vomiting 2/2 to migraine headache hx of migraines reported seizure HTN COMPLICATIONS/CHIEF COMPLAINT: Leukocytosis. HISTORY OF PRESENT ILLNESS: Patient is a 20 year old female with PHM of migraine headaches and undiagnosed hypertension who presented to the ED due to worsening frontal headache onset (02/06/21). Her headache was initially intermittent but became constant at 5:30 am today. Pt describes the headache as "pounding and squeezing" frontal headache that does not radiate. Nothing makes her headache better or worse. She reports being dx with migraines at the age of 6 initially. Admits to lightheadedness, dizziness, blurry vision, nausea, vomiting x4 today, photophobia, SOB, neck pain, neck stiffness, diarrhea and constipation. She states that she does not "feel balanced" when she is walking. Denies fever, chills, rashes, lesions, abd pain, back pain. Denies any recent sick contacts or travel. She first presented to the ED on 02/07/21, due to headache and was given Benadryl, Toradol, and Reglan that minimally helped with her sx. As she was being discharged from the ED pt had a witnessed seizure that lasted about 2 minutes and was given IV Ativan. She reports that she does not remember the seizure and feeling confused after. She was admitted for observation at that time and was discharged with Topamax 25 mg. HOSPITAL COURSE:#Intractable headache - Differential diagnosis at this time is migraine headache vs viral meningitis vs pseudo tumor cerebri. - Likely due to migraine headache- will continue her on topomax upon discharge and need f/u with neurology and PCP - CT Head, MRI and MRA brain WNL - LP CSF fluid analysis - normal opening pressure, slightly elevated protein, n ormal glucose, <2 RBCs - Viral and bacterial meningitis as cause of headaches and photophobia ruled out - Pt given 1 g Valproate, topiramate, reglan in ED. - Requiring morphine IV q4h and toradol and reglan for pain control. Will /DC IV morphine. - Started on 50mg topamax and discharged her on this dose and f/u with neurology outpt - Headache pain control with topamax, tylenol. Will add on Motrin if needed. #History of possible seizure - No seizures overnight - prolactin- slight elevation - F.u with neurology outpt #Leukocytosis - resolved on discharge - Fungal cx and blood cx still pending - blood cx x2 negative #Hypertension - on admission SBP 230s; DBP 100s - On discharge, bp 120/65 - With IV morphine, bp was able to be lowered - BP is 124/69- bp able to be decreased with pain control (IV morphine) - Workup to r/o secondary HTN - 24 h urine metaneprhine pending; aldosterone and renin levels ordered pending- f/u with PCP within 2 weeks of hospital discharge - Urine protein and cr ordered - will evaluate for proteinuria pending results DVT ppx: Lovenox 40 mg SC Daily Code status: Full DISCHARGE MEDICATIONS: Please see below. ALLERGIES: Please see below. PHYSICAL EXAMINATION ON DISCHARGE: VITAL SIGNS: Please see below. GENERAL: NAD, sitting up in bed. HEENT: EOMI. PERRLA. Conjunctiva and lids normal. No papilledema. No increase in lacrimation noted. No rhinorrhea. NECK: No nuchal rigidity. Negative Brudzinski's, Kernig's sign. HEART: Regular rate and rhythm. Normal S1/S2. No murmurs, rubs, or gallops appreciated. LUNGS: Lungs clear to auscultation. Good air movement. No wheezes, rales, or rhonchi. ABD: Soft and non-tender to palpation. No rebound or guarding. Normal bowel sounds to all four quadrants. EXTREMITIES: No edema noted., cyanosis or clubbing NEURO: No focal neurological deficits appreciated. headache resolved LABORATORY DATA: Please see below. IMAGING: MRI/MRA: WNL. PROGNOSIS: Fair ACTIVITY: [As tolerated]. DIET: regular DISCHARGE INSTRUCTIONS: F./u with neurology within 2 weeks of hospital discharge f/u with PCP within 2 weeks of discharge Please be compliant with topamax 50mg PO daily If condition presents again and/or worsens, report to nearest ED. ITEMS TO FOLLOWUP ON ON OUTPATIENT: 24h urine metanephrine ordered inpatient- pending results -aldosterone renin labs ordered -pending results - fungal workup pending DISCHARGE CONDITION: [Stable]. TIME SPENT ON DISCHARGE: Greater than 30 minutes. Vital Signs/I&Os Vital Signs Date Time Temp Pulse Resp B/P (MAP) Pulse Ox O2 Delivery O2 Flow Rate FiO2 02/13/21 08:00 97.1 65 18 130/80 (97) 98 Room Air l I&O- Last 24 Hours up to 6 AM 02/13/21 06:00 Intake Total 1260 ml Output Total 100 ml Balance 1160 ml Laboratory Data Labs 24H Laboratory Tests 2 02/12/21 10:53: 02/13/21 07:50: Immature Granulocyte % (Auto) 0.4, Neutrophils (%) (Auto) 64.4, Lymphocytes (%) (Auto) 25.3, Monocytes (%) (Auto) 8.7H, Eosinophils (%) (Auto) 0.8, Basophils (%) (Auto) 0.4, Neutrophils # (Auto) 6.7, Lymphocytes # (Auto) 2.6, Monocytes # (Auto) 0.9H, Eosinophils # (Auto) 0.1, Basophils # (Auto) 0.0, Nucleated Red Blood Cells % (auto) 0.0, Anion Gap 7L, Glomerular Filtration Rate > 60.0, Calcium Level 9.1 CBC/BMP Laboratory Tests 02/13/21 07:50 Microbiology Microbiology 02/11/21 Fungal Smear, Received Pending 02/11/21 Fungal Culture, Received Pending 02/11/21 Viral Culture, Received Pending 02/11/21 Gram Stain - Final, Resulted 02/11/21 CSF Culture, Resulted Pending 02/11/21 - Final, Resulted 02/11/21 Blood Culture - Preliminary, Resulted No growth after 24 hours . All specim... 02/11/21 Blood Culture - Preliminary, Resulted No growth after 24 hours . All specim... Discharge Medications Scheduled Magnesium Oxide (Magnesium Oxide) 400 Mg Tablet, 400 MG PO DAILY, (Reported) Topiramate (Topamax) 25 Mg Tablet, 50 MG PO DAILY Scheduled PRN Butalb/Acetaminophen/Caffeine (Qzubne-Rjvggckx-Rclx 50-300-40) 1 Each Capsule, 1 CAP PO Q4H PRN for HEADACHE, (Reported) Allergies Coded Allergies: No Known Allergies (Unverified , 03/07/18) GME ATTESTATION GME ATTESTATION My faculty preceptor for this patient encounter was physically present during the encounter and was fully available. All aspects of the patient interview, examination, medical decision making process, and medical care plan development were reviewed and approved by the faculty preceptor. The faculty preceptor is aware and concurs with the plan as stated in the body of this note and will attest to such by his/her cosignature. wKame Driscoll DO Feb 13, 2021 08:44
[2021-02-13] MEDS: TOPIRAMATE (TopAMAX) 25 MG TAB PO SCH (09:02)
[2021-02-13] MEDS: ONDANSETRON 4MG/2ML VIAL IV PRN (09:05)
[2021-02-13] MEDS: ENOXAPARIN 40MG/0.4ML SYRINGE (J1650 PER 10MG) SC SCH (09:05)
[2021-02-13 11:33] VITALS: BP 129/60
[2021-02-13] MEDS ORDERED: TOPA1TAB PO (11:42)
[2021-02-13 13:07] LABS: EBV VIRAL CAPSID AG IgM 84.1 U/mL (0.0-35.9); Lyme Disease IgG Ab 18 kDa Ban Absent (.); Lyme Disease IgG Ab 23 kDa Ban Absent (.); Lyme Disease IgG Ab 28 kDa Ban Absent (.); Lyme Disease IgG Ab 30 kDa Ban Absent (.); Lyme Disease IgG Ab 39 kDa Ban Absent (.); Lyme Disease IgG Ab 41 kDa Ban Absent (.); Lyme Disease IgG Ab 45 kDa Ban Absent (.); Lyme Disease IgG Ab 58 kDa Ban Absent (.); Lyme Disease IgG Ab 66 kDa Ban Absent (.); Lyme Disease IgG Ab 93 kDa Ban Absent (.); Lyme Disease IgG West Blot Int Negative (.); Lyme Disease IgG/IgM Antibodie <0.91 ISR (0.00-0.90); Lyme Disease IgM Ab 23 kDa Ban Present (.); Lyme Disease IgM Ab 39 kDa Ban Present (.); Lyme Disease IgM Ab 41 kDa Ban Absent (.); Lyme Disease IgM Ab Quantitati 0.82 index (0.00-0.79); Lyme Disease IgM West Blot Int Positive (.)
== END 2021-02-13 14:22 | disposition home or self-care (01) ==
LOC: M ED 10:01 → M ED INP 10:02 → ENRESERV 14:44 → M PCU 15:30
PROVIDERS: ADMIT Internal Medicine; ATTEND Internal Medicine
DX: R11.2 Nausea with vomiting, unspecified (principal); G43.909 Migraine, unspecified, not intractable, without status migrainosus; G40.89 Other seizures; D72.829 Elevated white blood cell count, unspecified; I10 Essential (primary) hypertension; Z79.899 Other long term (current) drug therapy; F12.10 Cannabis abuse, uncomplicated
CPT/HCPCS: 36415; 70450; 70544; 70553; 77002; 80047; 80048; 80076; 80307; 81001; 82088; 82784; 82945; 83605; 83835; 83916; 84145; 84146; 84157; 84244; 84702; 85025; 85652; 86140; 86308; 86617; 86664; 86665; 87040; 87070; 87102; 87205; 87252; 87483; 87631; 88108; 88313; 89050; 93005; 96361; 96365; 96372; 96375; 96376; 99284; A9576; J1650; J1885; J2270; J2405; J2765; J3475

== ENCOUNTER → 2022-10-07 | Outpatient (REF) | payer OTHER ==
[~2022-10-07] MED LIST changes: +BUTA1CAP PO; +DOXY-443 PO; -DOXY100C37 PO; +MAGN400T2 PO; +TOPI25TA10 PO
== END ==
LOC: M LAB REF 21:44
PROVIDERS: ATTEND Physician Assistant Medical
DX: L05.91 Pilonidal cyst without abscess (principal)

== ENCOUNTER → 2023-01-28 | Outpatient (REF) | payer OTHER | LOC: M LAB REF 16:08 | PROVIDERS: ATTEND Student in an Organized Health Care Education/Training Program | DX: J06.9 Acute upper respiratory infection, unspecified (principal) ==

== ENCOUNTER 2023-10-22 20:39 | Emergency (ER) | payer OTHER ==
[~2023-10-22] VITALS: Ht 160 cm; Wt 90.9 kg
[2023-10-22] MEDS ORDERED: CLINDAMYCIN 600 MG in IV 1 EA IV ONE (23:45)
[2023-10-22] MEDS ORDERED: LIDOCAINE 1% MDV 20ML VIAL SC ONE (23:45)
[2023-10-23] MEDS ORDERED: ACETAMINOPHEN 500 MG TAB PO ONE (00:05)
[2023-10-23 00:23] LABS: BASO % 0.2 % (0.0-1.0); EOS % 0.1 % (0.0-3.0); HEMATOCRIT 37.7 % (36.0-47.0); HEMOGLOBIN 12.4 g/dl (12.0-15.5); LYMPH # 1.8 10^3/uL (1.5-5.0); LYMPH % 8.9 % (24.0-44.0); MEAN CORPUSCULAR HEMOGLOBIN 29.6 pg (27.0-33.0); MEAN CORPUSCULAR HGB CONC 32.9 g/dl (32.0-36.5); MONO # 1.3 10^3/uL (0.0-0.8); MONO % 6.5 % (2.0-8.0); NEUTROPHILS # 16.3 10^3/uL (1.5-8.5); NEUTROPHILS % 83.2 % (36.0-66.0); PLATELET COUNT, AUTOMATED 284 10^3/uL (150-450); RED BLOOD COUNT 4.19 10^6/uL (4.00-5.40); WHITE BLOOD COUNT 19.6 10^3/uL (4.0-10.0)
[2023-10-23] MEDS ORDERED: CLEO300C2 PO (00:26)
[2023-10-23] MEDS ORDERED: IBUP-1022 PO (00:26)
[2023-10-23 00:40] LABS: BLOOD UREA NITROGEN 9 MG/DL (9-23); CALCIUM LEVEL 8.5 MG/DL (8.5-10.1); CARBON DIOXIDE LEVEL 27 MMOL/L (20-31); CHLORIDE LEVEL 105 MMOL/L (98-107); CREATININE FOR GFR 0.92 MG/DL (0.55-1.30); GLOMERULAR FILTRATION RATE > 60.0 (>60); GLUCOSE, FASTING 99 MG/DL (60-100); SODIUM LEVEL 141 MMOL/L (136-145)
[2023-10-23 01:29] VITALS: TEMP 100.1
[2023-10-23 01:40] VITALS: BP 134/76; O2SAT 100
== END 2023-10-23 01:48 | disposition home or self-care (01) ==
LOC: M ED 20:39
DX: L05.01 Pilonidal cyst with abscess (principal); G43.909 Migraine, unspecified, not intractable, without status migrainosus; F10.10 Alcohol abuse, uncomplicated; Z79.1 Long term (current) use of non-steroidal anti-inflammatories (NSAID); Z79.899 Other long term (current) drug therapy
CPT/HCPCS: 10060; 80048; 83605; 85025; 87040; 87070; 87077; 87186; 96365; 99284; J0737